=== PATIENT | female | born 1960 | race Asian ===

== ENCOUNTER 2019-06-21 10:58 | Day surgery (SDC) | payer BC ==
[2019-06-17 10:57] LABS: PLATELET COUNT 282 x10^3mcL (130-400); RED CELL DISTRIBUTION WIDTH 13.2 % (11.5-14.5)
[2019-06-17 11:16] LABS: ALBUMIN 3.8 g/dL (3.4-5.0); ALKALINE PHOSPHATASE 86 U/L (46-116); ALT/SGPT 55 U/L (14-59); AST/SGOT 24 U/L (15-37); BILIRUBIN TOTAL 0.45 mg/dL (0.20-1.00); CARBON DIOXIDE 30.8 mmol/L (21-32); CHLORIDE SERUM 104 mmol/L (98-107); CREATININE SERUM 0.6 mg/dL (0.6-1.0); GFR1 > 60 mL/min; GLUCOSE SERUM 109 mg/dL (74-106); POTASSIUM SERUM 3.8 mmol/L (3.5-5.1); SODIUM SERUM 144 mmol/L (136-145)
[2019-06-17 11:17] LABS: TOTAL PROTEIN, SERUM 8.7 g/dL (6.4-8.2)
[~2019-06-21] VITALS: Ht 154.9 cm; Wt 58.0 kg
[2019-06-21 11:36] VITALS: BP 155/98
[2019-06-21 16:51] VITALS: BP 140/90
== END 2019-06-21 16:45 | disposition home or self-care (01) ==
LOC: DS 10:58 → MA 13:00 → DS 16:45
PROVIDERS: Surgery
DX: D05.12 Intraductal carcinoma in situ of left breast (principal); D24.2 Benign neoplasm of left breast; D24.1 Benign neoplasm of right breast; Z79.82 Long term (current) use of aspirin
CPT/HCPCS: 88344; J0690; J1170; J2001; J2405; J2704; J3010; J3490; J7120

== ENCOUNTER 2019-06-24 11:22 | Emergency (ER) | payer SELFPAY ==
[~2019-06-24] VITALS: Ht 162.6 cm; Wt 57.8 kg
[2019-06-24 11:27] VITALS: Ht 162.6 cm; Wt 57.8 kg
[2019-06-24 13:10] VITALS: BP 135/74
== END 2019-06-24 13:15 | disposition home or self-care (01) ==
LOC: ED 11:22
DX: N64.4 Mastodynia (principal); G89.18 Other acute postprocedural pain; Z85.3 Personal history of malignant neoplasm of breast

== ENCOUNTER 2020-06-26 07:30 | Day surgery (SDC) | payer MEDICAID ==
[2020-06-20 10:58] LABS: BASOPHIL % 0.8 % (0-2); PLATELET COUNT 277 x10^3mcL (130-400); RED CELL DISTRIBUTION WIDTH 12.7 % (11.5-14.5)
[2020-06-20 11:02] LABS: ALBUMIN 3.9 g/dL (3.4-5.0); ALKALINE PHOSPHATASE 88 U/L (46-116); ALT/SGPT 46 U/L (14-59); AST/SGOT 23 U/L (15-37); BILIRUBIN TOTAL 0.5 mg/dL (0.20-1.00); CALCIUM 9.1 mg/dL (8.5-10.1); CHLORIDE SERUM 103 mmol/L (98-107); CREATININE SERUM 0.7 mg/dL (0.6-1.0); GFR1 > 60 mL/min; GLUCOSE SERUM 105 mg/dL (74-106); POTASSIUM SERUM 3.7 mmol/L (3.5-5.1); SODIUM SERUM 137 mmol/L (136-145)
[2020-06-20 11:05] LABS: TOTAL PROTEIN, SERUM 8.5 g/dL (6.4-8.2)
[~2020-06-26] VITALS: Ht 154.9 cm; Wt 59.9 kg
[2020-06-26 08:10] VITALS: BP 148/84
[2020-06-26 16:46] VITALS: BP 140/83
== END 2020-06-26 16:30 | disposition home or self-care (01) ==
LOC: DS 07:30 → NM 09:00 → MA 10:00 → DS 16:30
PROVIDERS: ATTEND Surgery
DX: C50.212 Malignant neoplasm of upper-inner quadrant of left female breast (principal); N60.22 Fibroadenosis of left breast
CPT/HCPCS: 77065; 88329; 88344; 88361; J0690; J1170; J1644; J2001; J2405; J2704; J3010; J3490; Q9968; U0003-CS